=== PATIENT | female | born 1965 | race Caucasian/White ===

== ENCOUNTER → 2016-04-03 | Outpatient (CLI) | payer BC ==
[~2016-04-03] MED LIST: ADVIN25050 INH; ALBUAER2 INH; ASTNS; ATV1 PO; DOCU-94 PO; FISHOIL PO; HYDR-3419 PO; LEVO137T3 PO; MULTTAB58 PO; OMEP40CA PO; RXC5 PO; SNG10 PO
[2016-04-03 18:14] LABS: THYROID STIMULATING HORMONE 40.9 uIu/ml (0.300-4.500)
== END | disposition home or self-care (01) ==
LOC: C.LABPVFM 14:26
PROVIDERS: ATTEND Family Medicine
DX: E03.9 Hypothyroidism, unspecified (principal)

== ENCOUNTER → 2016-07-28 | Outpatient (CLI) | payer BC ==
[2016-07-28 18:25] LABS: THYROID STIMULATING HORMONE 48.8 uIu/ml (0.300-4.500)
== END | disposition home or self-care (01) ==
LOC: C.LABPVFM 11:06
PROVIDERS: ATTEND Family Medicine
DX: E03.9 Hypothyroidism, unspecified (principal); Z11.59 Encounter for screening for other viral diseases

== ENCOUNTER → 2016-09-04 | Outpatient (CLI) | payer BC | END | disposition home or self-care (01) | LOC: C.LABPVFM 14:08 | PROVIDERS: ATTEND Family Medicine | DX: E03.9 Hypothyroidism, unspecified (principal) ==

== ENCOUNTER → 2016-12-18 | Outpatient (CLI) | payer BC | END | disposition home or self-care (01) | LOC: C.PAPS 16:32 | PROVIDERS: ATTEND Obstetrics & Gynecology | DX: Z01.411 Encounter for gynecological examination (general) (routine) with abnormal findings (principal); N95.1 Menopausal and female climacteric states ==

== ENCOUNTER → 2017-01-08 | Outpatient (CLI) | payer BC ==
[2017-01-08 18:00] LABS: THYROID STIMULATING HORMONE 9.05 uIu/ml (0.300-4.500)
== END | disposition home or self-care (01) ==
LOC: C.LABPVFM 15:00
PROVIDERS: ATTEND Family Medicine
DX: E03.9 Hypothyroidism, unspecified (principal)

== ENCOUNTER → 2017-02-06 | Outpatient (CLI) | payer BC ==
--- NOTE | 2017-02-06 15:29 | MAMMOGRAPHY REPORT ---
BILATERAL DIGITAL SCREENING MAMMOGRAM WITH CAD: 02/06/2017 CLINICAL HISTORY: Routine screening. Patient has no complaints. TECHNIQUE: Bilateral CC and MLO views were obtained. Current study was also evaluated with a Compute r Aided Detection (CAD) system. COMPARISON: Comparison is made to exams dated: 11/06/2012 mammogram, 09/29/2011 mammogram, 09/27/2010 ammogram - [facility], and 09/22/2008. BREAST COMPOSITION: There are scattered areas of fibroglandular density in both breasts. FINDINGS: There are benign-appearing calcifications in the left breast. No suspicious mass, architec tural distortion or cluster of suspicious microcalcifications is seen. IMPRESSION: ACR BI-RADS CATEGORY 1: NEGATIVE There is no mammographic evidence of malignancy. A 1 year screening mammogram is recommended. The pa tient will receive written notification of the results. Approximately 10% of breast cancers are not detected with mammography. A negative mammographic report should not delay biopsy if a clinically suggestive mass is present. Maru Mackey M.D. ay/:02/06/2017 11:59:34 Design Studio Consultant: Kacyee Christianson RT(R)(M), [facility] letter sent: Normal 1/2 BI-RADS Code: ACR BI-RADS Category 1: Negative
== END | disposition home or self-care (01) ==
LOC: C.MAMM 11:24
PROVIDERS: ATTEND Obstetrics & Gynecology
DX: Z12.31 Encounter for screening mammogram for malignant neoplasm of breast (principal)

== ENCOUNTER 2017-04-14 10:49 | Emergency (ER) | payer BC ==
[~2017-04-14] VITALS: Ht 162.6 cm; Wt 83.2 kg
[2017-04-14 10:59] VITALS: TEMP 37.2; Ht 162.6 cm; Wt 83.2 kg
[2017-04-14] MEDS ORDERED: SODIUM CHLORIDE 0.9% 1000ML 1,000 ML IV STA (11:02)
[2017-04-14] MEDS ORDERED: ONDANSETRON INJ 2 MG/ML 2 ML VIAL IV STA (11:02)
[2017-04-14] MEDS ORDERED: MoRPHine SULFATE 4 MG/ML 1 ML CARP\\VIAL IV STA (11:14)
[2017-04-14] MEDS ORDERED: OPTIRAY 320 IV PRN (11:15)
[2017-04-14 11:33] LABS: BASO % 0.3 %; BASO ABS # 0.04 K/uL (0-0.2); EOS % 0.8 %; EOS ABS # 0.12 K/uL (0-0.5); HEMATOCRIT 43.8 % (37-47); IG# 0.04 K/uL (0.00-0.02); LYMPH ABS # 2.83 K/uL (1.2-3.4); MEAN CELL VOLUME 91.4 fL (80-100); MEAN CORPUSCULAR HEMOGLOBIN 31.3 pg (25-34); MEAN CORPUSCULAR HGB CONC 34.2 g/dl (32-36); MEAN PLATELET VOLUME 9.6 fL (7.4-10.4); MONO % 7.4 %; NEUT % 72.2 %; NEUT ABS # 10.76 K/uL (1.4-6.5); PLATELET COUNT 332 K/uL (130-400); RED CELL DISTRIBUTION WIDTH CV 13.8 % (11.5-14.5); RED CELL DISTRIBUTION WIDTH SD 46.6 fL (36.4-46.3); WHITE BLOOD COUNT 14.89 K/uL (4.8-10.8)
[2017-04-14] MEDS ORDERED: CLMTP TD (11:42)
[2017-04-14] MEDS ORDERED: PROG100C6 PO (11:42)
[2017-04-14] MEDS ORDERED: ADVIN25/60 INH (11:42)
[2017-04-14] MEDS ORDERED: VNTHFA/IN INH (11:42)
[2017-04-14] MEDS ORDERED: MONT1TAB3 PO (11:42)
[2017-04-14] MEDS ORDERED: OMEP40CA41 PO (11:42)
[2017-04-14] MEDS ORDERED: OMEG10007 PO (11:42)
[2017-04-14] MEDS ORDERED: CHOL2000 PO (11:42)
[2017-04-14 11:55] LABS: ALBUMIN 3.7 gm/dl (3.4-5.0); CALCIUM 9.4 mg/dl (8.5-10.1); CREATININE 0.7 mg/dl (0.60-1.20); POTASSIUM 3.9 mmol/L (3.5-5.1)
[2017-04-14 11:58] LABS: TOTAL PROTEIN 8.3 gm/dl (6.4-8.2)
--- NOTE | 2017-04-14 12:47 | DIAGNOSTIC IMAGING REPORT ---
ABD/PELVIS IV CONTRAST ONLY CLINICAL HISTORY: 51 years-old Female presenting with LLQ abd pain, N/V/D. TECHNIQUE: Multidetector CT of the abdomen and pelvis was performed after the administration of intravenous contrast. IV contrast: 94 mL of Optiray 320. A dose lowering technique was used consistent with the principles of ALARA (as low as reasonably achievable). COMPARISON: 05/15/2014. CT DOSE (mGy.cm): The estimated cumulative dose is 649.81 mGy.cm. 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 Lung bases: Minimal basilar opacities, likely atelectasis. Normal heart size. No pericardial or pleural effusion. Liver: Normal morphology. Density consistent with hepatic steatosis. No focal lesion. Patent hepatic vasculature. Biliary: No intrahepatic or extrahepatic biliary ductal dilatation. Normal gallbladder. Minimal thickening at the gallbladder fundus could indicate focal adenomyomatosis. Pancreas: Normal. Spleen: Normal. Adrenal glands: Normal. Kidneys and ureters: Normal. No hydronephrosis. Bladder: Normal. Pelvic organs: Fallopian tube clips noted in the bilateral axillae. Uterus and bilateral ovaries normal. Bowel: Diverticulosis of the transverse through sigmoid colon. Wall thickening with pericolonic inflammatory change along the mid descending colon. Wall thickening without significant or pericolonic inflammatory change of the sigmoid colon likely indicates chronic diverticular disease. No bowel obstruction. Prominent duodenal diverticula along the descending portion protruding into the pancreatic head. No associated inflammatory change. Peritoneal cavity: No focal fluid collection to suggest abscess. Trace free fluid in the left paracolic gutter. No free intraperitoneal gas. Lymph nodes: No enlarged lymph nodes in the abdomen or pelvis. Vasculature: Atherosclerosis of the normal caliber abdominal aorta. IVC patent. Abdominal wall: Normal. Musculoskeletal: Posterior lumbar fusion hardware with L4 laminectomy. Degenerative changes of the right hip joint. IMPRESSION: 1. Findings consistent with acute uncomplicated diverticulitis of the descending colon. Endoscopic follow-up after resolution recommended to exclude underlying neoplasm of this is considered significantly less likely. No abscess or jake CT evidence of perforation. 2. Chronic diverticular disease of the sigmoid colon. Electronically signed by: Nader Rothman M.D. 04/14/2017 12:45 PM Dictated Date/Time: 04/14/2017 12:37 PM
[2017-04-14] MEDS ORDERED: CIPR-255 PO ×2 (13:16→14:34)
[2017-04-14] MEDS ORDERED: ONDA4TAB10 SL ×2 (13:16→14:34)
[2017-04-14] MEDS ORDERED: METR-163 PO ×2 (13:16→14:34)
[2017-04-14] MEDS ORDERED: OXYC1TAB3 PO ×2 (13:16→14:34)
[2017-04-14 13:25] VITALS: BP 123/89; PULSE 84; O2SAT 97
--- NOTE | 2017-04-14 13:38 | EMERGENCY ROOM VISIT NOTE ---
History First contact with patient: 11:01 Chief Complaint: ABDOMINAL PAIN Stated Complaint: DIVERTICULITIS Nursing Triage Summary: Pt reports left sided abd pain since 0400 "severe". Temp of 101 Wed night. "Aches and pains". Nausea and diarrhea. Hx of diverticulitis. Took Ibuprofen at 0830. History of Present Illness The patient is a 51 year old female who presents to the Emergency Room with complaints of left-sided abdominal pain since 4 AM this morning. Patient reports that she did not feel well yesterday. She describes the pain as a severe aching sensation with occasional sharp jabs. She has had nausea and watery diarrhea without vomiting. She has not noticed any blood in her stool. The patient reports prior history of diverticulitis, and reports that this feels the same. She is currently under the management of Dr. Buckner with her last colonoscopy performed in 2015. The patient rates her discomfort an 8 out of 10. She denies any alleviating or aggravating factors for her pain. Patient has a history of tubal ligation and . Review of Systems HEENT: Denies dizziness, visual problems, hearing loss, tinnitus. Denies difficulty swallowing or oral lesions. PULMONARY: Denies cough, shortness of breath, sputum production or hemoptysis. CARDIOVASCULAR: Denies chest pain, palpitations, dyspnea on exertion, orthopnea or peripheral edema. GASTROINTESTINAL: See HPI. GENITOURINARY: Denies dysuria, frequency, urgency or nocturia. NEUROLOGIC: Denies history of epilepsy, CVA, TIA or chronic headaches. MUSCULOSKELETAL: Denies history of joint tenderness/swelling. SKIN: Denies rashes or lesions. PSYCHIATRIC: Denies history of depression or mental illness. ENDOCRINE: Denies history of diabetes or thyroid disorders. Past Medical/Surgical History Medical Problems: (1) Asthma (2) Basal cell carcinoma removal (3) Lumbar stenosis with neurogenic claudication Family History Cancer Diabetes mellitus Heart disease Hypertension Lung disease Social History Smoking Status: Current Every Day Smoker Alcohol Use: occasionally Marital Status: Housing Status: lives with family Occupation Status: employed Current/Historical Medications Scheduled Cholecalciferol (Vitamin D3), 1 CAP PO DAILY Ciprofloxacin Hcl (Cipro), 500 MG PO BID Docusate Sodium (Colace), 100 MG PO HS Estradiol (Estradiol), 1 PATCH TD WK Fish Oil ([place]-3), 1 CAP PO BID Fluticasone Prop/Salmeterol (Advair Diskus 250/50 60 Dose), 1 PUFF INH BID Levothyroxine Sodium (Levothyroxine Sodium), 137 MCG PO QAM Metronidazole (Flagyl), 500 MG PO TID Montelukast Sodium (Singulair), 10 MG PO QPM Multiple Vitamin (Multivitamin), 1 TAB PO QAM Omeprazole (Prilosec), 40 MG PO QAM Ondasetron Odt (Zofran Odt), 4 MG SL Q6H Progesterone (Prometrium), 100 MG PO DAILY Scheduled PRN Albuterol Hfa (Ventolin Hfa), 1-2 PUFFS INH Q6H PRN for SOB/Wheezing Oxycodone Ir (Roxicodone Ir), 1-2 TAB PO Q4H PRN for Pain Physical Exam Vital Signs Date Time Temp Pulse Resp B/P (MAP) Pulse Ox O2 Delivery O2 Flow Rate FiO2 04/14/17 13:25 84 18 123/89 97 04/14/17 12:31 88 20 140/84 98 Room Air 04/14/17 10:59 37.2 110 18 151/99 98 Room Air Physical Exam CONSTITUTIONAL: Healthy and well nourished. Alert and oriented X 3 with positive affect. Patient appears in moderate discomfort from pain and nausea. HEENT: Normocephalic, atraumatic. Pupils equal, round and reactive. Ears and nares are clear. No scleral icterus or conjunctival injection/pallor. NECK: Full active range of motion without discomfort. No JVD or carotid bruits. RESPIRATORY: Clear to auscultation bilaterally with no wheezing, crackles, rhonchi or stridor. CARDIOVASCULAR: Regular rate and rhythm with no murmurs, rubs or gallops. GASTROINTESTINAL: Bowel sounds present in all quadrants. Patient has notable left-sided tenderness to palpation without rigidity, guarding or rebound. Negative McBurney's point tenderness. Negative CVA tenderness. No fluid ballottement. MUSCULOSKELETAL: Full range of motion of all joints without discomfort. INTEGUMENTARY: No rash or other significant dermatologic conditions noted. HEMATOLOGIC: No ecchymosis or petechiae. NEUROLOGIC: No focal neurologic deficits noted. Medical Decision & Procedures ER Provider Diagnostic Interpretation: CT of the abdomen and pelvis with IV contrast shows an uncomplicated acute diverticulitis. No obvious free air or abscess formation noted. Radiologist report is as follows: ABD/PELVIS IV CONTRAST ONLY CLINICAL HISTORY: 51 years-old Female presenting with LLQ abd pain, N/V/D. TECHNIQUE: Multidetector CT of the abdomen and pelvis was performed after the administration of intravenous contrast. IV contrast: 94 mL of Optiray 320. A dose lowering technique was used consistent with the principles of ALARA (as low as reasonably achievable). COMPARISON: 05/15/2014. CT DOSE (mGy.cm): The estimated cumulative dose is 649.81 mGy.cm. 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 Lung bases: Minimal basilar opacities, likely atelectasis. Normal heart size. No pericardial or pleural effusion. Liver: Normal morphology. Density consistent with hepatic steatosis. No focal lesion. Patent hepatic vasculature. Biliary: No intrahepatic or extrahepatic biliary ductal dilatation. Normal gallbladder. Minimal thickening at the gallbladder fundus could indicate focal adenomyomatosis. Pancreas: Normal. Spleen: Normal. Adrenal glands: Normal. Kidneys and ureters: Normal. No hydronephrosis. Bladder: Normal. Pelvic organs: Fallopian tube clips noted in the bilateral axillae. Uterus and bilateral ovaries normal. Bowel: Diverticulosis of the transverse through sigmoid colon. Wall thickening with pericolonic inflammatory change along the mid descending colon. Wall thickening without significant or pericolonic inflammatory change of the sigmoid colon likely indicates chronic diverticular disease. No bowel obstruction. Prominent duodenal diverticula along the descending portion protruding into the pancreatic head. No associated inflammatory change. Peritoneal cavity: No focal fluid collection to suggest abscess. Trace free fluid in the left paracolic gutter. No free intraperitoneal gas. Lymph nodes: No enlarged lymph nodes in the abdomen or pelvis. Vasculature: Atherosclerosis of the normal caliber abdominal aorta. IVC patent. Abdominal wall: Normal. Musculoskeletal: Posterior lumbar fusion hardware with L4 laminectomy. Degenerative changes of the right hip joint. IMPRESSION: 1. Findings consistent with acute uncomplicated diverticulitis of the descending colon. Endoscopic follow-up after resolution recommended to exclude underlying neoplasm of this is considered significantly less likely. No abscess or jake CT evidence of perforation. 2. Chronic diverticular disease of the sigmoid colon. Laboratory Results 04/14/17 11:15 Red Blood Count 4.79, Mean Corpuscular Volume 91.4, Mean Corpuscular Hemoglobin 31.3, Mean Corpuscular Hemoglobin Concent 34.2, Mean Platelet Volume 9.6, Neutrophils (%) (Auto) 72.2, Lymphocytes (%) (Auto) 19.0, Monocytes (%) (Auto) 7.4, Eosinophils (%) (Auto) 0.8, Basophils (%) (Auto) 0.3, Neutrophils # (Auto) 10.76, Lymphocytes # (Auto) 2.83, Monocytes # (Auto) 1.10, Eosinophils # (Auto) 0.12, Basophils # (Auto) 0.04 04/14/17 11:15 Test 04/14/17 11:10 04/14/17 11:15 Urine Color DK YELLOW Urine Appearance CLOUDY (CLEAR) Urine pH 5.0 (4.5-7.5) Urine Specific [place] 1.020 (1.000-1.030) Urine Protein NEG (NEG) Urine Glucose (UA) NEG (NEG) Urine Ketones NEG (NEG) Urine Occult Blood NEG (NEG) Urine Nitrite NEG (NEG) Urine Bilirubin NEG (NEG) Urine Urobilinogen NEG (NEG) Urine Leukocyte Esterase NEG (NEG) Urine WBC (Auto) 1-5 /hpf (0-5) Urine RBC (Auto) 0-4 /hpf (0-4) Urine Hyaline Casts (Auto) 1-5 /lpf (0-5) Urine Epithelial Cells (Auto) >30 /lpf (0-5) Urine Bacteria (Auto) NEG (NEG) Urine Yeast (Auto) PRESENT (NONE PRSENT) White Blood Count 14.89 K/uL (4.8-10.8) Red Blood Count 4.79 M/uL (4.2-5.4) Hemoglobin 15.0 g/dL (12.0-16.0) Hematocrit 43.8 % (37-47) Mean Corpuscular Volume 91.4 fL (80-100) Mean Corpuscular Hemoglobin 31.3 pg (25-34) Mean Corpuscular Hemoglobin Concent 34.2 g/dl (32-36) Platelet Count 332 K/uL (130-400) Mean Platelet Volume 9.6 fL (7.4-10.4) Neutrophils (%) (Auto) 72.2 % Lymphocytes (%) (Auto) 19.0 % Monocytes (%) (Auto) 7.4 % Eosinophils (%) (Auto) 0.8 % Basophils (%) (Auto) 0.3 % Neutrophils # (Auto) 10.76 K/uL (1.4-6.5) Lymphocytes # (Auto) 2.83 K/uL (1.2-3.4) Monocytes # (Auto) 1.10 K/uL (0.11-0.59) Eosinophils # (Auto) 0.12 K/uL (0-0.5) Basophils # (Auto) 0.04 K/uL (0-0.2) RDW Standard Deviation 46.6 fL (36.4-46.3) RDW Coefficient of Variation 13.8 % (11.5-14.5) Immature Granulocyte % (Auto) 0.3 % Immature Granulocyte # (Auto) 0.04 K/uL (0.00-0.02) Anion Gap 7.0 mmol/L (3-11) Est Creatinine Clear Calc Drug Dose 97.0 ml/min Estimated GFR () 114.6 Estimated GFR (Non- 98.9 BUN/Creatinine Ratio 9.9 (10-20) Calcium Level 9.4 mg/dl (8.5-10.1) Total Bilirubin 0.5 mg/dl (0.2-1) Direct Bilirubin 0.1 mg/dl (0-0.2) Aspartate Amino Transf (AST/SGOT) 71 U/L (15-37) Alanine Aminotransferase (ALT/SGPT) 79 U/L (12-78) Alkaline Phosphatase 142 U/L (45-117) Total Protein 8.3 gm/dl (6.4-8.2) Albumin 3.7 gm/dl (3.4-5.0) Lipase 149 U/L (73-393) The above labs were reviewed. White count is almost 15,000. Patient also has elevated LFTs and alkaline phosphatase. Review of prior medical records shows that the patient has had elevated liver transaminases in the past. Medications Administered Medications (Trade) Dose Ordered Sig/Williams Route Start Time Stop Time Status Last Admin Dose Admin Sodium Chloride 1,000 ml @ 999 mls/hr Q1H1M STAT IV 04/14/17 11:02 04/14/17 12:02 DC 04/14/17 11:17 999 MLS/HR Ondansetron HCl (Zofran Inj) 4 mg NOW STAT IV 04/14/17 11:02 04/14/17 11:05 DC 04/14/17 11:17 4 MG Morphine Sulfate (MoRPHine SULFATE INJ) 4 mg NOW STAT IV 04/14/17 11:14 04/14/17 11:15 DC 04/14/17 11:22 4 MG ED Course Patient history and physical exam were performed. Nurse's notes were reviewed. Vital signs were reviewed. The patient is tachycardic at a rate of 110 bpm. She is afebrile. She is also hypertensive with a blood pressure 151/99. IV access was established, and labs were drawn. The patient was hydrated with a liter normal saline. She was also administered IV morphine and Zofran for pain and nausea. Review of labs shows a moderate leukocytosis with left shift and bandemia. LFTs and alkaline phosphatase are elevated. The patient has had elevated LFTs and alkaline phosphatase in the past. CT of the abdomen and pelvis with IV contrast shows an acute uncomplicated diverticulitis. The patient was advised of her laboratory and CT findings. She was encouraged to follow-up with Dr. Buckner for further reevaluation and management. Return to the emergency department over the weekend for any progressively worsening symptoms. The patient was provided prescriptions for Cipro, Flagyl, OxyIR 5 mg and Zofran ODT. The patient was happy with plan of care, voiced understanding of all discharge instructions, and rated her discomfort a 2 out of 10 at the completion of my exam. Medical Decision Patient presents with abrupt onset of left lower quadrant abdominal pain. CT studies are consistent with an acute uncomplicated diverticulitis. Based on history and physical exam findings, I do not suspect appendicitis, pyelonephritis, bowel obstruction or peritonitis. Additional laboratory studies are not consistent with pancreatitis. The patient does have elevated LFTs and alkaline phosphatase that have been elevated in the past. The patient does not have any clinical exam findings to suggest cholecystitis. 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 [place] Drug Monitoring [place] Search Results: patient reviewed within database, no issues identified Medication Reconcilliation Current Medication List: was personally reviewed by me Blood Pressure Screening Patient's blood pressure: Normal blood pressure Impression Primary Impression: Acute diverticulitis Additional Impression: Elevated LFTs Departure Information Prescriptions Ondasetron Odt (ZOFRAN ODT) 4 Mg Tab 4 MG SL Q6H for Nausea, #10 TAB Prov: Sebastián Zamudio PA 04/14/17 Oxycodone Ir (Roxicodone Ir) 5 Mg Tab 1-2 TAB PO Q4H Y for Pain, #15 TAB For Initial Treatment Prov: Sebastián Zamudio PA 04/14/17 Metronidazole (Flagyl) 500 Mg Tab 500 MG PO TID for Pain for 10 Days, #30 TAB For Initial Treatment Prov: Sebastián Zamudio PA 04/14/17 Ciprofloxacin Hcl (CIPRO) 500 Mg Tab 500 MG PO BID for 10 Days, #20 TAB Prov: Sebastián Zamudio PA 04/14/17 Referrals Nader Hameed M.D. (PCP) Patient Instructions My [facility] Problem Qualifiers
== END 2017-04-14 13:26 | disposition home or self-care (01) ==
LOC: C.EDB 10:51 → C.EDC 13:26
DX: K57.32 Diverticulitis of large intestine without perforation or abscess without bleeding (principal); R79.89 Other specified abnormal findings of blood chemistry; J45.909 Unspecified asthma, uncomplicated; M48.062 Spinal stenosis, lumbar region with neurogenic claudication; F17.200 Nicotine dependence, unspecified, uncomplicated; Z79.51 Long term (current) use of inhaled steroids; Z85.828 Personal history of other malignant neoplasm of skin; Z80.9 Family history of malignant neoplasm, unspecified; Z83.3 Family history of diabetes mellitus; Z82.49 Family history of ischemic heart disease and other diseases of the circulatory system

== ENCOUNTER → 2017-05-26 | Outpatient (CLI) | payer BC ==
[~2017-05-26] MED LIST changes: +ADVIN25/60 INH; -ADVIN25050 INH; -ALBUAER2 INH; -ASTNS; -ATV1 PO; +CHOL2000 PO; +CIPR-255 PO; +CLMTP TD; -FISHOIL PO; -HYDR-3419 PO; +METR-163 PO; +MONT1TAB3 PO; +OMEG10007 PO; -OMEP40CA PO; +OMEP40CA41 PO; +ONDA4TAB10 SL; +OXYC1TAB3 PO; +PROG100C6 PO; -RXC5 PO; -SNG10 PO; +VNTHFA/IN INH
== END | disposition home or self-care (01) ==
LOC: C.LAB1850 10:38
PROVIDERS: ATTEND Nurse Practitioner Family
DX: E03.9 Hypothyroidism, unspecified (principal)

== ENCOUNTER → 2017-09-03 | Outpatient (CLI) | payer BC ==
[~2017-09-03] MED LIST changes: +OXYC-90 PO; -OXYC1TAB3 PO
[2017-09-03 13:23] LABS: HEMOGLOBIN A1C 6.3 % (4.5-5.6)
[2017-09-03 13:30] LABS: ALBUMIN 3.9 gm/dl (3.4-5.0); ALKALINE PHOSPHATASE 117 U/L (45-117); ALT/SGPT 48 U/L (12-78); AST/SGOT 31 U/L (15-37); BLOOD UREA NITROGEN 9 mg/dl (7-18); CALCIUM 9.1 mg/dl (8.5-10.1); CARBON DIOXIDE 27 mmol/L (21-32); CREATININE 0.76 mg/dl (0.60-1.20); GLUCOSE 97 mg/dl (70-99); POTASSIUM 4.2 mmol/L (3.5-5.1); SODIUM 139 mmol/L (136-145)
== END | disposition home or self-care (01) ==
LOC: C.LABPVFM 10:31
PROVIDERS: ATTEND Nurse Practitioner Family
DX: E03.9 Hypothyroidism, unspecified (principal); R73.01 Impaired fasting glucose; R94.5 Abnormal results of liver function studies